=== PATIENT | male | born 1955 | race African-American/Black ===

== ENCOUNTER 2018-07-14 23:16 | Inpatient (IN) | payer MEDICARE, OTHER ==
[~2018-07-14] VITALS: Ht 175.3 cm; Wt 75.3 kg
--- NOTE | 2018-07-15 01:12 | NUR ---
PATIENT ADMITTED DIRECTLY FROM [facility] VIA STRETCHER ACCOMPANIED BY 2 MALE PARAMEDICS, PLACED PATIENT IN BED. PATIENT ADMITTED ON 5150 HOLD FOR DTS. PATIENT WENT TO [facility]ENTRAL STATIONAND TOLD COMMUNICATIONS STRATEGIST THAT HE WAS DEPRESSED. HE SAID THAT HE WANTED TO KILL HIMSELF BY WALKING INTO THE TRAIN TRACKS. PATIENT IS AWAKE, ALERT, ORIENTED X3, SHOWS NO S/S OF ANY PAIN, RESPIRATION EVEN, BREATHING PATTERN NON-LABORED, NO APPARENT DISTRESS NOTED,. PATIENT IS CALM, COOPERATIVE, INTERACTS WHEN ENGAGED. OBEYS INSTRUCTION, APPROPRIATE, UNKEMPT, DISHEVELED. PATIENT AMBULATORY, STEADY GAIT. SKIN CLEAR. BELONGINGS WERE INVENTORIED AND CHECKED FOR CONTRABAND. BED LOCKED AND PLACED ON LOWEST POSITION FOR SAFETY. WILL CONTINUE TO MONITOR Q 15 MINS. TO MAINTAIN SAFETY
[2018-07-15] MEDS ORDERED: MAG HYDROX/AL HYDROX/SIMETH 30 ML UDC PO PRN (01:30)
[2018-07-15] MEDS ORDERED: ACETAMINOPHEN 325 MG TABLET PO PRN (01:30)
[2018-07-15] MEDS ORDERED: CLON0.1T PO (02:04)
[2018-07-15] MEDS ORDERED: QUET400T PO (02:04)
--- NOTE | 2018-07-15 07:13 | NUR ---
PAGED AND SPOKE WITH DR. BARNES, RE: MED RECON.
--- NOTE | 2018-07-15 07:15 | NUR ---
GPS/RN RECEIVED PT FROM MERY WOODRUFF WITH REPORT THAT ADMISSION IS COMPLETED/ALL PAPERWORK DONE 100%
[2018-07-15 08:00] VITALS: BP 113/74
[2018-07-15] MEDS ORDERED: IBUP-1953 PO (08:23)
[2018-07-15] MEDS: clonazePAM 0.5 MG TABLET PO PRN ×2 (12:26→20:59)
--- NOTE | 2018-07-15 14:26 | NUR ---
RN-CO: SEEN AND EXAMINED BY DR BARNES , REMINDED HIM TO RECONCILE HOME MEDS.
[2018-07-15 16:00] VITALS: BP 110/79
[2018-07-15 20:00] VITALS: BP 141/108
[2018-07-15] MEDS ORDERED: IBUPROFEN 400 MG TABLET PO PRN (20:30)
[2018-07-15] MEDS: QUETIAPINE FUMARATE 100 MG TABLET PO SCH (21:06)
[2018-07-15] MEDS: TEMAZEPAM 7.5 MG CAPSULE PO PRN (21:33)
[2018-07-16 07:26] LABS: THYROID STIMULATING HORMONE 1.345 uIU/mL (0.358-3.74)
[2018-07-16 07:30] LABS: BILIRUBIN,TOTAL 0.3 mg/dL (0.2-1.0); CALCIUM, SERUM 8.5 mg/dL (8.5-10.1); CREATININE 0.9 mg/dL (0.6-1.3); TOTAL PROTEIN, SERUM 6.4 g/dL (6.4-8.2)
[2018-07-16 07:45] LABS: POTASSIUM 2.6 mmol/L (3.5-5.1)
[2018-07-16 08:00] VITALS: BP 99/72
--- NOTE | 2018-07-16 08:42 | NUR ---
WAS NOTIFIED OF CRITICAL LAB VALUE FOR PT POTASSIUM LEVEL OF 2.6, CONSULTED CHARGE NURSE JOHN AND WAS TOLD TO SEND A MESSAGE TO DR. PATEL AND AWAIT FURTHER ORDERS.
--- NOTE | 2018-07-16 08:52 | NUR ---
DR. CAMERON CHOU WAS CALLED AT THIS TIME, RECIEVED A CALL BACK FROM THE DOCTOR STATING HE WOULD TAKE CARE OF IT, AWAITING FURTHER ORDERS
[2018-07-16 10:22] LABS: BASOPHILS % (AUTO) 0.9 % (0.0-2.0); HEMATOCRIT 42 % (39-51); HEMOGLOBIN 13.7 g/dL (13.5-17.5); LYMPHOCYTES % (AUTO) 45.6 % (20.0-44.0); MEAN CORPUSCULAR HGB CONC 33 g/dl (31.0-36.0); MEAN CORPUSCULAR VOLUME 88 fL (80-96); MONOCYTES # (AUTO) 0.6 /CMM (0.1-1.30); MONOCYTES % (AUTO) 13.1 % (2.0-12.0); NEUTROPHILS # (AUTO) 1.5 /CMM (1.8-8.9); NEUTROPHILS % (AUTO) 34.4 % (43.0-81.0); PLATELET COUNT (AUTO) 293 /CMM (150-450); RED BLOOD CELL COUNT(AUTO) 4.74 MIL/uL (4.5-6.0); WHITE BLOOD COUNT (AUTO) 4.3 K/uL (4.3-11.0)
[2018-07-16] MEDS ORDERED: POTASSIUM CHLORIDE 20 MEQ TAB.PRT.SR PO ONE (11:00)
[2018-07-16] MEDS: HYDROCODONE/APAP 5/325MG 1 EACH TABLET PO PRN ×2 (12:28→21:15)
--- NOTE | 2018-07-16 13:24 | NUR ---
PT POTASSIUM WAS REPLACED DR. BARNES ORDER 40 MEQ OF POTASSIUM SR, ORDER CARRIED OUT
[2018-07-16] MEDS: clonazePAM 0.5 MG TABLET PO PRN (13:41)
--- NOTE | 2018-07-16 15:15 | NUR ---
Bella ([phone]), SMART Team, called the SW and informed her that the pt cannot be discharged until the team visits the unit to evaluate the pt for possession of firearms. SW stated that the pt does not have a discharge date as of right now and that the SW will inform her once there is one.
[2018-07-16 16:00] VITALS: BP 108/76
[2018-07-16 20:07] VITALS: BP 136/96
[2018-07-16] MEDS: QUETIAPINE FUMARATE 100 MG TABLET PO SCH (21:14)
[2018-07-16] MEDS: TEMAZEPAM 7.5 MG CAPSULE PO PRN (21:15)
[2018-07-17 06:47] LABS: CALCIUM, SERUM 8.5 mg/dL (8.5-10.1); POTASSIUM 3.2 mmol/L (3.5-5.1)
--- NOTE | 2018-07-17 07:48 | NUR ---
RN NOTES PT IN BED WITH NO SIGNS OF AGITATION.
[2018-07-17 08:00] VITALS: BP 126/82
[2018-07-17] MEDS: clonazePAM 0.5 MG TABLET PO PRN (08:11)
[2018-07-17] MEDS: HYDROCODONE/APAP 5/325MG 1 EACH TABLET PO PRN (08:11)
[2018-07-17] MEDS ORDERED: POTASSIUM CHLORIDE 20 MEQ TAB.PRT.SR PO ONE (10:00)
[2018-07-17 16:00] VITALS: BP_SYST 122; BP_SYST 125; BP_DIAS 68; BP_DIAS 93
[2018-07-17 17:00] VITALS: BP 122/93
[2018-07-17 20:29] VITALS: BP_SYST 142; BP_SYST 151; BP_DIAS 100; BP_DIAS 89
[2018-07-17] MEDS: QUETIAPINE FUMARATE 100 MG TABLET PO SCH (21:57)
[2018-07-17] MEDS: TEMAZEPAM 7.5 MG CAPSULE PO PRN (22:59)
[2018-07-18 07:22] LABS: CALCIUM, SERUM 8.6 mg/dL (8.5-10.1); POTASSIUM 3.7 mmol/L (3.5-5.1)
[2018-07-18 07:35] LABS: APPEARANCE,URINE SL CLOUDY (CLEAR); BILIRUBIN,URINE NEGATIVE (NEGATIVE); BLOOD, URINE NEGATIVE Ery/uL (NEGATIVE); COLOR,URINE YELLOW (YELLOW); KETONES,URINE NEGATIVE (NEGATIVE); LEUKOCYTE ESTERASE ,URINE NEGATIVE (NEGATIVE); NITRITE, URINE NEGATIVE (NEGATIVE); PH,URINE 6.5 (5.0-8.0); PROTEIN,URINE NEGATIVE (NEGATIVE); UGLUCOSE NEGATIVE (NEGATIVE); UROBILINOGEN,URINE 0.2 EU/dL (0.2)
[2018-07-18 08:00] VITALS: BP 127/89
[2018-07-18] MEDS ORDERED: IBUPROFEN 400 MG TABLET PO PRN (08:30)
[2018-07-18] MEDS: HYDROCODONE/APAP 5/325MG 1 EACH TABLET PO PRN ×2 (09:06→21:24)
--- NOTE | 2018-07-18 10:06 | NUR ---
RN NOTE:PATIENT C/O PAIN IN BACK LEVEL 10/10 MEDICATED WITH NORCO WILL CONTINUE TO MONITOR .
--- NOTE | 2018-07-18 10:34 | NUR ---
Initial Discharge Plan: Pt is currently homeless and does not have any family members or friends in his support system. Per pt, he is open to a discharge plan to a penitentiary facility. SW will work with the pt and the MD regarding appropriate discharge planning. SW will form a safe and proper discharge.
[2018-07-18] MEDS: clonazePAM 0.5 MG TABLET PO PRN ×2 (13:12→21:25)
--- NOTE | 2018-07-18 13:14 | NUR ---
RN NOTE :PATIENT C/O ANXIETY MEDICATED WITH CLONAZEPAM 0.5MG PO WILL CONTINUE TO MONITOR .
[2018-07-18 16:00] VITALS: BP 115/90
--- NOTE | 2018-07-18 19:14 | NUR ---
GPS/RN OPENING NOTES RECEIVED PATIENT, AWAKE, WANDERS AROUND, IN THE ACTIVITY ROOM, ABLE TO VERBALIZE NEEDS, PATIENT, AND MONITOR AND PAIN REQUEST TO HAVE MEDICATIONS BE GIVEN AT 2200, TO MONITOR ANY CHANGES IN BEHAVIOR, RECIVED ENDORSEMENT FROM AM RN FOR RHODA.
[2018-07-18 20:00] VITALS: BP 169/113
[2018-07-18 20:19] VITALS: BP 169/113
[2018-07-18] MEDS: CLONIDINE HCL 0.1 MG TABLET PO PRN (20:24)
--- NOTE | 2018-07-18 20:28 | NUR ---
BLOOD PRESSURE ELEVATED AT 169/113, NEEDED MEDICATION FOR HTN CLONIDINE 0.1 MG BY MOUTH GIVEN, PATIENT ABLE TO SWALLOW PILL WITH WATER. WILL MONITOR.
--- NOTE | 2018-07-18 21:15 | NUR ---
GPS/RN NOTES PATIENT REPORTED SEVERE PAIN GENERALIZED, WITH ANXIETY AND IRRITABILITY, HAS NOT SLEPT AND REPORTED THE NEED TO TAKE NEEDED MEDICATIONS, BLOOD PRESSURE WAS ELEVATED AND NEEDED CLONIDINE 0.1 MG PO GIVEN EARLIER, EDUCATED REGARDING SIDE EFFECTS OF MEDICATION, TO TAKE IT IN TIME APART, VERBALIZED UNDERSTANDING,MONITOIRNG PATIENT FOR ANY CHANGES.
[2018-07-18] MEDS: QUETIAPINE FUMARATE 100 MG TABLET PO SCH (21:22)
[2018-07-18] MEDS: TEMAZEPAM 7.5 MG CAPSULE PO PRN (21:25)
--- NOTE | 2018-07-18 21:26 | NUR ---
seroquel 400 mg po order to be given at 100 mg x 4 . removed 4tablets as intended , adjust as necessary unable to pull the 4 tabs at the sametime.
[2018-07-19 08:00] VITALS: BP 136/82
[2018-07-19] MEDS: HYDROCODONE/APAP 5/325MG 1 EACH TABLET PO PRN ×2 (09:09→20:50)
[2018-07-19] MEDS: clonazePAM 0.5 MG TABLET PO PRN ×2 (12:03→20:48)
--- NOTE | 2018-07-19 12:03 | NUR ---
JUSTINO faxed a prison facility referral to [facility] with attention to Coy and CJ to the fax number: [phone].
--- NOTE | 2018-07-19 13:44 | NUR ---
SO ([phone]), sales recruiting coordinator at [facility], stated that the pt was accepted to their facility.
--- NOTE | 2018-07-19 13:45 | NUR ---
Todd ([phone]), distance education coordinator at [facility], contacted the SW and stated that the pt was accepted to their facility.
[2018-07-19 16:00] VITALS: BP 121/78
[2018-07-19 20:00] VITALS: BP 151/104
[2018-07-19] MEDS: TEMAZEPAM 7.5 MG CAPSULE PO PRN (20:26)
[2018-07-19] MEDS: QUETIAPINE FUMARATE 100 MG TABLET PO SCH (21:09)
[2018-07-19] MEDS: CLONIDINE HCL 0.1 MG TABLET PO PRN (21:09)
[2018-07-20 08:00] VITALS: BP 114/73
[2018-07-20] MEDS: HYDROCODONE/APAP 5/325MG 1 EACH TABLET PO PRN ×2 (09:29→21:07)
--- NOTE | 2018-07-20 09:30 | NUR ---
GPS/RN NOTES PATIENT REPORTED SEVERE PAIN GENERALIZED, NORCO GIVEN PER ORDER. WILL CONTINUE MONITORING
[2018-07-20] MEDS: clonazePAM 0.5 MG TABLET PO PRN (10:34)
--- NOTE | 2018-07-20 14:47 | NUR ---
SW met with the pt and informed him that he was accepted to a snf facility and that once the psychiatrist decides on a discharge date he will be transferred. Pt accepted this discharge plan.
[2018-07-20 16:00] VITALS: BP 120/85
[2018-07-20] MEDS: QUETIAPINE FUMARATE 25 MG TABLET PO SCH (17:12)
[2018-07-20 20:00] VITALS: BP 140/105
[2018-07-20] MEDS: QUETIAPINE FUMARATE 100 MG TABLET PO SCH (21:06)
[2018-07-20] MEDS: TEMAZEPAM 7.5 MG CAPSULE PO PRN (21:08)
[2018-07-21 08:00] VITALS: BP 126/91
[2018-07-21] MEDS: QUETIAPINE FUMARATE 25 MG TABLET PO SCH ×2 (09:01→17:04)
[2018-07-21] MEDS: CLONIDINE HCL 0.1 MG TABLET PO PRN (09:01)
[2018-07-21] MEDS: HYDROCODONE/APAP 5/325MG 1 EACH TABLET PO PRN ×2 (09:01→21:49)
[2018-07-21 16:00] VITALS: BP 123/82
[2018-07-21] MEDS: clonazePAM 0.5 MG TABLET PO PRN ×2 (17:03→22:31)
[2018-07-21 20:00] VITALS: BP 144/95
[2018-07-21] MEDS: QUETIAPINE FUMARATE 100 MG TABLET PO SCH (21:11)
[2018-07-21] MEDS: TEMAZEPAM 7.5 MG CAPSULE PO PRN (21:12)
[2018-07-22 08:00] VITALS: BP 122/84
[2018-07-22] MEDS: QUETIAPINE FUMARATE 25 MG TABLET PO SCH ×2 (08:47→16:12)
[2018-07-22] MEDS: HYDROCODONE/APAP 5/325MG 1 EACH TABLET PO PRN ×2 (08:48→22:25)
[2018-07-22 16:00] VITALS: BP 159/100
--- NOTE | 2018-07-22 16:45 | NUR ---
GPS RN NOTE RE CHECKED BP AND IS 132/92, HR: 69.
[2018-07-22 20:06] VITALS: BP 131/94
[2018-07-22] MEDS: QUETIAPINE FUMARATE 100 MG TABLET PO SCH (20:38)
[2018-07-22] MEDS: TEMAZEPAM 7.5 MG CAPSULE PO PRN (21:44)
[2018-07-22] MEDS: clonazePAM 0.5 MG TABLET PO PRN (23:41)
[2018-07-23 08:00] VITALS: BP 139/100
[2018-07-23] MEDS: QUETIAPINE FUMARATE 25 MG TABLET PO SCH ×2 (09:19→16:53)
[2018-07-23] MEDS: HYDROCODONE/APAP 5/325MG 1 EACH TABLET PO PRN ×2 (09:20→22:54)
[2018-07-23] MEDS: clonazePAM 0.5 MG TABLET PO PRN ×2 (10:29→23:55)
[2018-07-23 16:00] VITALS: BP 134/86
[2018-07-23] MEDS: MAGNESIUM HYDROXIDE 30 ML UDC PO PRN (19:39)
[2018-07-23 20:00] VITALS: BP 135/97
[2018-07-23] MEDS: QUETIAPINE FUMARATE 100 MG TABLET PO SCH (20:46)
[2018-07-23] MEDS: TEMAZEPAM 7.5 MG CAPSULE PO PRN (21:44)
[2018-07-24 08:00] VITALS: BP 116/90
[2018-07-24] MEDS: QUETIAPINE FUMARATE 25 MG TABLET PO SCH ×2 (09:33→17:25)
[2018-07-24] MEDS: HYDROCODONE/APAP 5/325MG 1 EACH TABLET PO PRN ×2 (09:34→20:03)
[2018-07-24] MEDS: clonazePAM 0.5 MG TABLET PO PRN ×2 (10:27→23:06)
--- NOTE | 2018-07-24 10:27 | NUR ---
PT STATING HE IS VERY ANXIOUS, REQUESTING KLONOPIN, ADMINISTERED KLONOPIN 0.5MG PO PER MD ORDER. VS STABLE. WILL CONTINUE TO MONITOR FOR SAFETY.
[2018-07-24 16:00] VITALS: BP 146/99
[2018-07-24 20:06] VITALS: BP 157/105
[2018-07-24] MEDS: QUETIAPINE FUMARATE 100 MG TABLET PO SCH (21:06)
[2018-07-24] MEDS: MAGNESIUM HYDROXIDE 30 ML UDC PO PRN (21:45)
[2018-07-24] MEDS: TEMAZEPAM 7.5 MG CAPSULE PO PRN (22:09)
[2018-07-25 08:00] VITALS: BP 138/85
[2018-07-25] MEDS: QUETIAPINE FUMARATE 25 MG TABLET PO SCH (08:31)
[2018-07-25] MEDS: HYDROCODONE/APAP 5/325MG 1 EACH TABLET PO PRN (08:31)
[2018-07-25] MEDS: clonazePAM 0.5 MG TABLET PO PRN (11:39)
--- NOTE | 2018-07-25 14:07 | NUR ---
GPS/RN NOTE 63 YEAR OLD MALE DISCHARGED TO [facility] IN STABLE CONDITION. PATIENT IS ALERT AND ORIENTED X 3, AMBULATORY, DENIES PAIN, NO APPARENT DISTRESS SEEN, COMPLIANT WITH MEDICATIONS, COOPERATIVE WITH TREATMENT PLANS. PATIENT DENIES SI/HI, BEHAVIOR IMPROVED, PSYCHIATRIC TREATMENT PLAN MET, MEDICAL TREATMENT PLANS DEFERRED FOR CONTINUAL MONITORING. EDUCATED PATIENT ABOUT AFTER CARE PLAN AND COPIES PROVIDED. MEDICATIONS RECONCILED WITH MDS. CALLED FOR REPORT AT [facility] FOR CONTINUITY OF CARE. ALL BELONGINGS GIVEN TO PATIENT AND HE DENIED ANY MISSING ITEMS. PATIENT UNABLE TO SIGN DISCHARGE PAPERWORK BUT SECONDARY RN CO-SIGNED. PATIENT REFUSED WOUND PICTURES TO BE TAKEN, SKIN IS INTACT. PATIENT LEFT THE UNIT AT 14:05 VIA AMBULANCE.
--- NOTE | 2018-07-25 14:16 | NUR ---
JUSTINO faxed a clearance note to [facility] with attention to CJ to the fax number: [phone].
--- NOTE | 2018-07-25 14:19 | NUR ---
Discharge Note: Pt was discharged to [facility] ([facility]) located at [address] [place] [address]; ([phone]). Pt was transported via [facility] (Trip #[id number]) at 2PM. There is no one to contact for this pt. Upon discharge, the pt appeared to be in a dysphoric mood and presented with a calm affect. Pt denied both suicidal and homicidal ideation as well as auditory and visual hallucinations. SW provided the pt with two smoking cessation referrals at discharge that are listed below. Pt will be under the care of his psychiatrist, Dr. Carrasco, [place] at [address] [place] [address]; and will be under the care of his senior lead java developer, Dr. Sanchez, located at [address] [place] [address]; . Pt will continue to address his substance use with his treatment team.
== END 2018-07-25 14:00 | DRG 885 ==
LOC: GPS 07-15 00:47
PROVIDERS: ADMIT Psychiatry & Neurology Psychiatry; ATTEND Psychiatry & Neurology Psychiatry
DX: F20.0 Paranoid schizophrenia (principal); G93.40 Encephalopathy, unspecified; F41.9 Anxiety disorder, unspecified; I10 Essential (primary) hypertension; E87.6 Hypokalemia; M54.5 Low back pain; Z98.890 Other specified postprocedural states; F39 Unspecified mood [affective] disorder
CPT/HCPCS: 36415; 80048-TC; 80053-TC; 80061-TC; 81000-TC; 84443-TC; 85025-TC; 87081-TC; 87086-TC